=== PATIENT | male | born 1960 | race African-American/Black ===

== ENCOUNTER 2024-09-27 06:29 | Inpatient (IN) | payer OTHER, MEDICAID ==
[~2024-09-27] VITALS: Ht 182.9 cm; Wt 112.0 kg
[2024-09-27] MEDS: ACETAMINOPHEN 325 MG TAB PO ONE (07:01)
--- NOTE | 2024-09-27 07:50 | ED.PDOC ---
General HPI Comments 64-year-old male with HTN, DDD presents with a chief complaint of flank pain and dysuria. Patient states that his pain is localized to his right flank, nonradiating, is sharp in nature, constant in timing, and rates his pain a 8/10. Patient is unsure if he has a kidney stone or if the pain is from his DDD. Patient denies any chest pain or SOB at this time. Denies any hematuria, discharge, or other urinary symptoms. Chief Complaint: Back Pain Time Seen by MD: 07:36 Reviewed notes: Medications, Allergies Allergies: Coded Allergies: NO KNOWN ALLERGIES (Unverified , 09/27/24) Information Source: Patient Mode of Arrival: Ambulatory Severity: Moderate Inability to void: None Timing: Days Duration: Since onset Has not urinated for: Minutes Prehospital treatment: None Onset: Spontaneous Symptoms: Dysuria Location: (R) Flank associated signs and symptoms: Flank Pain, Dysuria Past Medical History PAST MEDICAL HISTORY: HTN Past Medical History (Other): DDD Surgical History: Denies all surgeries Family History Family History: Reviewed,noncontributory to illness Social History Smoker: Non-Smoker Alcohol: Denies ETOH Use Drugs: Denies Drug Use Lives In: Home Constitutional: denies: chills, diaphoresis, fatigue, fever, malaise, sweats, weakness, others EENTM: denies: blurred vision, double vision, ear bleeding, ear discharge, ear drainage, ear pain, ear ringing, eye pain, eye redness, hearing loss, mouth pain, mouth swelling, nasal discharge, nose bleeding, nose congestion, nose pain, photophobia, tearing, throat pain, throat swelling, voice changes, others Respiratory: denies: cough, hemoptysis, orthopnea, SOB at rest, shortness of breath, SOB with excertion, stridor, wheezing, others Cardiovascular: denies: chest pain, dizzy spells, diaphoresis, Dyspnea on exertion, edema, irregular heart beat, left arm pain, lightheadedness, palpitations, PND, syncope, others Gastrointestinal: denies: abdomen distended, abdominal pain, blood streaked bowels, constipated, diarrhea, dysphagia, difficulty swallowing, hematemesis, melena, nausea, poor appetite, poor fluid intake, rectal bleeding, rectal pain, vomiting, others Genitourinary: reports: dysuria, flank pain; denies: burning, frequency, hematuria, incontinence, penile discharge, penile sore, pain, testicle pain, testicle swelling, urgency, others Neurological: denies: dizziness, fainting, headache, left sided numbness, left sided weakness, numbness, paresthesia, pre-existing deficit, right sided numbness, right sided weakness, seizure, speech problems, tingling, tremors, weakness, others Musculoskeletal: denies: back pain, gout, joint pain, joint swelling, muscle pain, muscle stiffness, neck pain, others Integumetry: denies: bruises, change in color, change in hair/nails, dryness, laceration, lesions, lumps, rash, wounds, others Allergic/Immunocompromised: denies: Difficulty Healing, Frequent Infections, Hives, Itching, others Hematologic/Lymphatic: denies: anemia, blood clots, easy bleeding, easy bruising, swollen glands, others Endocrine: denies: excessive hunger, excessive sweating, excessive thirst, excessive urination, flushing, intolerance to cold, intolerance to heat, unexplained weight gain, unexplained weight loss, others Psychiatric: denies: anxiety, bipolar disorder, depression, hopeless, panic disorder, schizophrenia, sleepless, suicidal, others All Other Systems: Reviewed and Negative Physical Exam General Appearance: Moderate Distress, Normal HEENT: Normal ENT Inspection, Pharynx Normal, TMs Normal Neck: Full Range of Motion, Non-Tender, Normal, Normal Inspection Respiratory: Chest Non-Tender, No Accessory Muscle Use, No Respiratory Distress, Other (Coarse breath sounds) Cardiovascular: No Edema, No JVD, No Murmur, No Gallop, Normal Peripheral Pulse s, Tachycardia Breast Exam: Deferred Gastrointestinal: No Organomegaly, Non Tender, No Pulsatile Mass, Normal Bowel Sounds, Soft Genitalia: Deferred Pelvic: Deferred Rectal: Deferred Extremities: No calf tenderness, Normal capillary refill, Normal inspection, Normal range of motion, Non-tender, No pedal edema Musculoskeletal : Apperance: Normal Neurologic: Alert, tennis instructor II-XII nml as Tested, No Motor Deficits, Normal Affect, Normal Mood, No Sensory Deficits Cerebellar Function: Normal Reflexes: Normal Skin: Dry, Normal Color, Warm Peripheral Pulses: 3+ Radial (R), 3+ Radial (L) Lymphatic: No Adenopathy Was a procedure done? Was a procedure done?: No Differential Diagnosis Kidney stone (Female): Musculoskeletal pain, Urinary obstruction, Urolithiasis X-Ray, Labs, Meds, VS Vital Signs Date Time Temp Pulse Resp B/P (MAP) Pulse Ox O2 Delivery O2 Flow Rate FiO2 09/27/24 08:39 98.9 09/27/24 08:10 122 18 98 Room Air 09/27/24 08:10 98.9 122 18 132/83 (99) 98 98.9 09/27/24 07:01 101.7 09/27/24 06:59 128 09/27/24 06:46 101.7 146 20 170/84 (112) 97 Lab Test 09/27/24 08:22 09/27/24 08:05 Range/Units White Blood Count Pending Red Blood Count Pending Hemoglobin Pending Hematocrit Pending Mean Corpuscular Volume Pending Mean Corpuscular Hemoglobin Pending Mean Corpuscular Hemoglobin Concent Pending Red Cell Distribution Width Pending Platelet Count Pending Mean Platelet Volume Pending Neutrophils (%) (Auto) Pending Lymphocytes (%) (Auto) Pending Monocytes (%) (Auto) Pending Basophils (%) (Auto) Pending Neutrophils # (Auto) Pending Lymphocytes # (Auto) Pending Monocytes # (Auto) Pending Sodium Level Pending Potassium Level Pending Chloride Level Pending Carbon Dioxide Level Pending Anion Gap Pending Blood Urea Nitrogen Pending Creatinine Pending Glomerular Filtration Rate Calc Pending BUN/Creatinine Ratio Pending Serum Glucose Pending Lactic Acid Level Pending Calcium Level Pending Troponin I High Sensitivity Pending Influenza Type A Antigen Pending Influenza Type B Antigen Pending SARS-CoV-2 Antigen (Rapid) Pending Current Medications Medications (Trade) Dose Ordered Sig/Angela Route Start Time Stop Time Status Last Admin Acetaminophen (Tylenol Tablet) 650 mg ONCE ONCE PO 09/27/24 07:00 09/27/24 07:01 DC 09/27/24 07:01 Ketorolac Tromethamine (Toradol Injection) 30 mg ONCE ONCE IV 09/27/24 08:00 09/27/24 08:01 DC 09/27/24 08:38 Ceftriaxone Sodium 50 ml @ 100 mls/hr ONCE ONCE IV 09/27/24 08:00 09/27/24 08:29 DC 09/27/24 08:38 Sodium Chloride 1,000 ml @ 1,000 mls/hr Q1H ONCE IV 09/27/24 08:00 09/27/24 08:59 09/27/24 08:30 Patient alert. Has fever. Was given acetaminophen. Saturation pristine on room air. Tachycardia. Blood pressure elevated. Was given clonidine. Establish intravenous access. Was given fluids. Possible pneumonia. He does have a history of degenerative disc disease. Complaining of urinary symptoms. Possible sepsis from urine. Was given Rocephin. Blood cultures. Lactic acid level. Explained to the patient. Continue to monitor. Time of 1ST Reevaluation: 08:06 Reevaluation 1ST: Unchanged Patient Education/Counseling: Diagnosis, Treatment, Prognosis Family Education/Counseling: Diagnosis, Treatment, Prognosis Departure 1 Departure Time of Disposition: 07:57 Impression: Primary Impression: Sepsis, unspecified organism Qualified Codes: A41.9 - Sepsis, unspecified organism Additional Impressions: Pneumonia Qualified Codes: J18.9 - Pneumonia, unspecified organism Hypertensive urgency Disposition: ADMITTED INPATIENT Admit to: Med Surg Condition: Guarded Critical Care Note Critical Care Time?: Yes (45 min-critical care time only) Critical care comment: Tachycardia Stability Stability form required: No Heart Score Heart Score: Heart Score Response (Comments) Value History Slightly Suspicious 0 EKG Normal 0 Age >65 2 Risk Factors >3 or Hx ASHD 2 Troponin Normal limit 0 Total 4 I personally scribed for SUJATA AN MD ([email or web address]) on 09/27/24 at 07:50. Electronically submitted by Bhaskar Michaels ([email or web address]). SUJATA AN MD Sep 27, 2024 07:50
[2024-09-27] MEDS: SODIUM CHLORIDE 0.9% 1,000 ML IV ONE ×2 (08:30→09:25)
[2024-09-27] MEDS: cefTRIAXone 1GM/50ML D5W 50 ML IV ONE (08:38)
[2024-09-27] MEDS: KETOROLAC TROMETH 30 MG/ML 1ML VIAL IV ONE (08:38)
--- NOTE | 2024-09-27 08:39 | DVH ---
CHEST RADIOGRAPH Indication: sob Technique: Single frontal view of the chest was obtained COMPARISON: None FINDINGS: Lines and Tubes: None Lungs: Clear Pleura: No effusion. No pneumothorax. Cardiomediastinal contours: Unremarkable Bones: Unremarkable IMPRESSION: No acute disease.
[2024-09-27 08:47] LABS: Basophils # (auto) 0 10 ^3/uL (0-0.2); Basophils % (auto) 0.3 % (0.0-2.0); Eosinophils # (auto) 0 10 ^3/uL (0-0.8); Hematocrit 45.7 % (41.0-53.0); Hemoglobin 15.6 g/dL (13.5-17.5); Lymphocytes # (auto) 1.1 10 ^3/uL (0.4-5.4); Lymphocytes % (auto) 10.2 % (10.0-50.0); Mean Corpuscular Hemoglobin 30.4 pg (28.0-32.0); Mean Corpuscular Hgb Conc. 34.1 g/dL (32.0-36.0); Mean Corpuscular Volume 89.3 fL (80.0-100.0); Monocytes # (auto) 1.1 10 ^3/uL (0-1.3); Monocytes % (auto) 9.5 % (0.0-12.0); Nucleated Red Blood Cells % 0.2 %; Platelet Count (auto) 169 10^3/uL (140-450); Red Blood Cells 5.12 10^6/uL (4.5-5.90); Red Cell Distribution Width 13.5 % (11.8-14.3); White Blood Cell 11.2 10^3/uL (4.4-10.8)
[2024-09-27 08:58] LABS: Potassium 3.5 mmol/L (3.5-5.1)
[2024-09-27 09:00] LABS: Anion Gap 13 (5-15); Calcium 9.3 mg/dL (8.7-10.4); Carbon Dioxide 19 mmol/L (20-31); Chloride 98 mmol/L (98-107); Sodium 130 mmol/L (136-145)
[2024-09-27 09:05] LABS: Rapid Influenza A Negative (Negative); Rapid Influenza B Negative (Negative)
[2024-09-27 09:05] LABS: BUN/Creatinine Ratio 13.4 (10.0-20.0); Blood Urea Nitrogen 18 mg/dL (9-23)
[2024-09-27 09:06] LABS: COVID19 ANTIGEN SOFIA FIA NEGATIVE (NEGATIVE)
[2024-09-27 09:08] LABS: Glucose 137 mg/dL (74-106)
[2024-09-27] MEDS: AZITHROMYCIN 500MG/ 250ML 250 ML IV ONE (09:25)
[2024-09-27 09:27] LABS: Urine Bacteria MANY /hpf (None Seen); Urine Blood 2+ /uL (Negative); Urine Clarity Ex.Turbid (Clear); Urine Color Light-Orange (Yellow); Urine Mucus FEW (None Seen); Urine Protein, UAD 1+ (Negative); Urine Specific Gravity 1.017 (1.001-1.035); Urine Squamous Epithelial Cell None Seen /hpf (<5); Urine Urobilinogen 2 mg/dL (Negative); Urine WBC 1894 /HPF (0-3); Urine WBC Clumps PRESENT /hpf (None Seen); Urine pH 5.5 (5.0-9.0)
[2024-09-27] MEDS ORDERED: ACETAMINOPHEN 325 MG TAB PO PRN ×2 (09:45)
[2024-09-27] MEDS ORDERED: ONDANSETRON HCL 4 MG/2 ML VIAL IV PRN (09:45)
[2024-09-27] MEDS ORDERED: DEXTROSE (50%) 50ML SYRG IV PRN (09:45)
[2024-09-27] MEDS ORDERED: CHOL20002 (09:48)
[2024-09-27] MEDS ORDERED: MELO15TA29 (09:48)
[2024-09-27] MEDS ORDERED: NORT10CA PO (09:48)
[2024-09-27] MEDS ORDERED: LOSA-535 PO (09:48)
[2024-09-27] MEDS ORDERED: GABA-1250 PO (09:48)
--- NOTE | 2024-09-27 09:59 | DVHHP2 ---
History of Present Illness Reason for Visit: Flank pain History of Present Illness Dejuan Chery is a 64-year-old male with past medical history of hypertension and degenerative disc disease who presents to the ED with right-sided flank pain, dysuria, and back pain for 2-3 days. Patient reports that he has not burning sensation 8/10 but no bleeding and no discharge. Patient reports that he smokes half a pack of cigarettes per day, does not drink, and does not use illicit drugs. Patient denies any chest pain, shortness of breath, nausea, vomiting, diarrhea, chills, lightheadedness, weakness, and dizziness. Cardiovascular: HTN Past Medical History DDD Past Surgical History: None Family History: None Smoke: <1 pack per day ALCOHOL: none Drugs: None Lives: with Family Domestic Violence: Neg Review of Systems Genitourinary: Dysuria Musculoskeletal: other (Flank pain right-sided), back pain Allergies: Coded Allergies: NO KNOWN ALLERGIES (Unverified , 09/27/24) Exam Vital Signs Vital Signs Date Time Temp Pulse Resp B/P (MAP) Pulse Ox O2 Delivery O2 Flow Rate FiO2 09/27/24 08:39 98.9 09/27/24 08:10 122 18 98 Room Air 09/27/24 08:10 132/83 (99) General Appearance: Alert, Oriented X3, Cooperative, No acute distress HEENT: Atraumatic, PERRLA, EOMI, Mucous membr. moist/pink Respiratory: Normal air movement Cardiovascular: Normal S1, Normal S2, No murmurs Abdominal: Soft Extremities: No clubbing, No cyanosis, No edema, Normal pulses, No tenderness/swelling Skin: No rashes, No breakdown, No significant lesion Neuro: Normal gait, Normal speech, Strength at 5/5 X4 ext, Normal tone, Sen sation intact Psych/Mental Status: Mental status NL, Mood NL Labs/Xrays Labs Test 09/27/24 08:22 09/27/24 08:05 09/27/24 07:02 Range/Units White Blood Count 11.2 H 4.4-10.8 10^3/uL Red Blood Count 5.12 4.5-5.90 10^6/uL Hemoglobin 15.6 13.5-17.5 g/dL Hematocrit 45.7 41.0-53.0 % Mean Corpuscular Volume 89.3 80.0-100.0 fL Mean Corpuscular Hemoglobin 30.4 28.0-32.0 pg Mean Corpuscular Hemoglobin Concent 34.1 32.0-36.0 g/dL Red Cell Distribution Width 13.5 11.8-14.3 % Platelet Count 169 140-450 10^3/uL Mean Platelet Volume 9.6 6.9-10.8 fL Neutrophils (%) (Auto) 80.0 37.0-80.0 % Lymphocytes (%) (Auto) 10.2 10.0-50.0 % Monocytes (%) (Auto) 9.5 0.0-12.0 % Eosinophils (%) (Auto) 0.0 0.0-7.0 % Basophils (%) (Auto) 0.3 0.0-2.0 % Neutrophils # (Auto) 9.0 H 1.6-8.6 10 ^3/uL Lymphocytes # (Auto) 1.1 0.4-5.4 10 ^3/uL Monocytes # (Auto) 1.1 0-1.3 10 ^3/uL Eosinophils # (Auto) 0 0-0.8 10 ^3/uL Basophils # (Auto) 0 0-0.2 10 ^3/uL Nucleated Red Blood Cells 0.2 % Sodium Level 130 L 136-145 mmol/L Potassium Level 3.5 3.5-5.1 mmol/L Chloride Level 98 98-107 mmol/L Carbon Dioxide Level 19 L 20-31 mmol/L Anion Gap 13 5-15 Blood Urea Nitrogen 18 9-23 mg/dL Creatinine 1.34 H 0.700-1.30 mg/dL Glomerular Filtration Rate Calc 58 >90 mL/min BUN/Creatinine Ratio 13.4 10.0-20.0 Serum Glucose 137 H 74-106 mg/dL Lactic Acid Level 1.7 0.4-2.0 mmol/L Calcium Level 9.3 8.7-10.4 mg/dL Troponin I High Sensitivity 15 </=54 ng/L Influenza Type A Antigen Negative Negative Influenza Type B Antigen Negative Negative SARS-CoV-2 Antigen (Rapid) Negative NEGATIVE Urine Color Light-orange Yellow Urine Clarity Ex.turbid Clear Urine pH 5.5 5.0-9.0 Urine Specific [place] 1.017 1.001-1.035 Urine Protein 1+ H Negative Urine Ketones Negative Negative Urine Blood 2+ H Negative /uL Urine Nitrite Negative Negative Urine Bilirubin Negative Negative Urine Urobilinogen 2 H Negative mg/dL Urine Leukocyte Esterase 3+ Negative /uL Urine RBC 31 0 - 3 /hpf Urine WBC Clumps Present None Seen /hpf Urine Microscopic WBC 1894 H 0-3 /HPF Urine Squamous Epithelial Cells None seen <5 /hpf Urine Bacteria Many H None Seen /hpf Urine Mucus Few None Seen Urine Glucose Normal Normal mg/dL CHEST RADIOGRAPH Indication: sob Technique: Single frontal view of the chest was obtained COMPARISON: None FINDINGS: Lines and Tubes: None Lungs: Clear Pleura: No effusion. No pneumothorax. Cardiomediastinal contours: Unremarkable Bones: Unremarkable IMPRESSION: No acute disease. Assessment/Plan Assessment/Plan Assessment Intractable flank pain right-sided Dysuria likely due to acute cystitis Leukocytosis likely due to acute cystitis KRISS Intractable back pain Hyperglycemia History of hypertension History of DDD Plan Admit to med surge Antipyretics IV fluids IV antibiotics-ceftriaxone + azithromycin Chest x-ray noted CT abdomen and pelvis Hemoglobin A1c ISS and Accu-Cheks Home medications reconciled UA done Antiemetics Pain management Plan discussed with: Patient My Orders Orders - FEDERICA MARADIAGA DIRECTOR OF SECURITIES AND [employer] Procedure Category Date Status Time Ct Ab Pel Wo Con-No CT 09/27/24 Logged Oral Or Iv 09:40 Admit ADMIT 09/27/24 Transmitted 09:41 Allergies BRITTNEY 09/27/24 Transmitted 09:41 Code Status CODE 09/27/24 Transmitted 09:41 Hydrocodone-Acet PHA 09/27/24 Transmitted 5/325mg Tab ([place] 09:45 Ondansetron Hcl PHA 09/27/24 Transmitted (Zofran) 09:45 Complete Blood Count LAB 09/28/24 Verified 04:00 Comprehensive LAB 09/28/24 Verified Metabolic Panel 04:00 Cardiac DIET 09/27/24 Transmitted Diet-2gna,Lofat,Lochol Lunch Acetaminophen Tablet PHA 09/27/24 Transmitted (Tylenol Tablet) 09:45 Glucose Blood PHA 09/27/24 Transmitted (Accu-Chek Comfort 11:30 Mild Sliding Scale PHA 09/27/24 Transmitted 11:30 Dextrose 50% Syringe PHA 09/27/24 Transmitted 09:45 Hemoglobin A1c LAB 09/27/24 Transmitted 09:41 Azithromycin 500mg/ PHA 09/27/24 Transmitted 250ml (Zithromax 50 10:00 Ceftriaxone Ivpb PHA 09/28/24 Transmitted Rocephin 09:00 NS PHA 09/27/24 Transmitted 09:45 Acetaminophen Tablet PHA 09/27/24 Transmitted (Tylenol Tablet) 09:45 Date of Service: Sep 27, 2024 Billing Provider: FEDERICA MARADIAGA Common Visit Codes: [id number] INP/OBS CARE (HIGH) FEDERICA MARADIAGA Sep 27, 2024 09:59
[2024-09-27] MEDS ORDERED: AZITHROMYCIN 500MG/ 250ML 250 ML IV SCH (10:00)
--- NOTE | 2024-09-27 10:11 | DVH ---
CT ABDOMEN AND PELVIS WITHOUT CONTRAST CLINICAL HISTORY: pain TECHNIQUE: Multiple contiguous axial images of the abdomen and pelvis without intravenous contrast. The images were reformatted degenerate coronal and sagittal reconstructions. All CT scans at this medical facility are performed using dose modulation techniques as appropriate t o a performed exam including the following:Automated exposure control was utilized; adjustment of the MA and/or KV according to patient size; and use of iterative reconstruction technique. Radiation Dose Information: CT Dose: CTDI volume is 18 mGy. Dose-length product is 1046 mGy*cm Comparison: None FINDINGS: Evaluation of the abdomen and pelvis is limited without intravenous contrast. There is a 9 mm calculus in the distal right ureter, just proximal to the UVJ. There is right hydrour eteronephrosis. There is no evidence of a right renal calculus. There is a 10 mm calculus in the lowe r pole of the left kidney. There is no left renal hydronephrosis. There is no left ureteral calculus or hydroureter. The liver, gallbladder, pancreas, adrenal glands, and spleen appear within normal limits. There is no gross evidence of abdominal lymphadenopathy. There is no free fluid or free air. The stomach grossly appears unremarkable. The small and large bowel loops demonstrate normal caliber . There are diverticula in the distal colon without evidence of acute diverticulitis. The abdominal aorta and IVC appear within normal limits. There is a 8 mm calculus along the posterior bladder wall. Pelvic organ appears within normal limits. There is no gross evidence of a pelvic mass. There is no free fluid collection. Lung bases are clear. There is no acute osseous abnormality. There are advanced degenerative changes in both hip joints. IMPRESSION: 1. 9 mm obstructing calculus in the distal right ureter, just proximal to the UVJ. There is right hyd roureteronephrosis. 2. 10 mm nonobstructive calculus in the lower pole of the left kidney. 3. 8 mm calculus along the posterior bladder wall. 4. Distal colon diverticulosis. HS:Y
[2024-09-27 10:30] VITALS: PULSE 94; RESP 18; O2SAT 98
[2024-09-27 11:01] VITALS: PULSE 104; RESP 18; O2SAT 99
[2024-09-27] MEDS: TAMSULOSIN HYDROCHLORIDE 0.4 MG CAP PO ONE (11:05)
[2024-09-27] MEDS: InsuLIN REG 1unit/0.01ml Soln (100units/ml) SC SCH (11:30)
[2024-09-27 12:13] VITALS: BP 134/87; PULSE 96; RESP 18; TEMP 98.2; O2SAT 98
[2024-09-27] MEDS: ACCU-CHEK COMFORT CURVE STRIP VI SCH (13:05)
[2024-09-27] MEDS: SODIUM CHLORIDE 0.9% 1,000 ML IV SCH (13:06)
[2024-09-27] MEDS: AZITHROMYCIN 500MG/ 250ML 250 ML IV SCH (13:14)
[2024-09-27 16:33] VITALS: BP 136/83; PULSE 100; RESP 18; TEMP 97.8; O2SAT 98
[2024-09-27] MEDS: TAMSULOSIN HYDROCHLORIDE 0.4 MG CAP PO SCH (17:47)
[2024-09-27 18:44] VITALS: PULSE 104; RESP 18; O2SAT 99
[2024-09-27 21:00] VITALS: BP 140/82; PULSE 104; RESP 20; TEMP 98.2; O2SAT 97
[2024-09-28] VITALS (7 sets, daily range): BP systolic 110–145; BP diastolic 76–91; PULSE 88–104; RESP 18–20; TEMP 98–98.4; O2SAT 95–99
[2024-09-28 07:30] LABS: Basophils # (auto) 0 10 ^3/uL (0-0.2); Basophils % (auto) 0.4 % (0.0-2.0); Eosinophils # (auto) 0.1 10 ^3/uL (0-0.8); Eosinophils % (auto) 1.1 % (0.0-7.0); Hematocrit 38.8 % (41.0-53.0); Hemoglobin 13.2 g/dL (13.5-17.5); Lymphocytes # (auto) 0.9 10 ^3/uL (0.4-5.4); Lymphocytes % (auto) 16.1 % (10.0-50.0); Mean Corpuscular Hemoglobin 30.3 pg (28.0-32.0); Mean Corpuscular Hgb Conc. 34.1 g/dL (32.0-36.0); Mean Corpuscular Volume 89.1 fL (80.0-100.0); Monocytes # (auto) 0.9 10 ^3/uL (0-1.3); Monocytes % (auto) 15.3 % (0.0-12.0); Neutrophils # (auto) 3.8 10 ^3/uL (1.6-8.6); Neutrophils % (auto) 67.1 % (37.0-80.0); Nucleated Red Blood Cells % 0.1 %; Platelet Count (auto) 140 10^3/uL (140-450); Red Blood Cells 4.35 10^6/uL (4.5-5.90); Red Cell Distribution Width 13.6 % (11.8-14.3); White Blood Cell 5.7 10^3/uL (4.4-10.8)
[2024-09-28 07:34] LABS: Alanine Aminotransferase 20 U/L (7-40); Albumin 3.6 g/dL (3.2-4.8); Alkaline Phosphatase 82 U/L (46-116); Anion Gap 9 (5-15); Aspartate Aminotransferase 32 U/L (13-40); BUN/Creatinine Ratio 16.3 (10.0-20.0); Blood Urea Nitrogen 15 mg/dL (9-23); Carbon Dioxide 23 mmol/L (20-31); Chloride 106 mmol/L (98-107); Potassium 3.6 mmol/L (3.5-5.1); Sodium 138 mmol/L (136-145); Total Protein 6.1 g/dL (5.7-8.2)
[2024-09-28 07:35] LABS: Bilirubin, Total 0.5 mg/dL (0.2-1.0)
[2024-09-28 07:42] LABS: Calcium 8.5 mg/dL (8.7-10.4); Glucose 114 mg/dL (74-106)
[2024-09-28] MEDS: cefTRIAXone 1GM/50ML D5W 50 ML IV SCH (08:36)
--- NOTE | 2024-09-28 11:39 | DVHPN2 ---
Reviewed: Care Plan, H&P, Labs, Medications, Previous Orders, Radiology Changes from previous H/P or p: No Changes Genitourinary: Dysuria Musculoskeletal: other (Flank pain right-sided), back pain Objective Vitals Vital Signs Date Time Temp Pulse Resp B/P (MAP) Pulse Ox O2 Delivery O2 Flow Rate FiO2 09/28/24 09:00 98.4 95 18 145/85 (105) 95 98.4 09/27/24 18:44 Room Air* 0 21 Intake/Output Intake and Output 09/28/24 07:00 Intake Total 2875 ml Balance 2875 ml Intake Oral 500 ml IV Total 2375 ml # Voids 9 Medications Current Medications Medications Dose Ordered Sig/Angela Route Start Time Stop Time Status Last Admin Dose Admin Acetaminophen/ Hydrocodone Bitart 1 tab Q4HP PRN PO 09/27/24 09:45 Ondansetron HCl 4 mg Q4HP PRN IV 09/27/24 09:45 Acetaminophen 650 mg Q6HP PRN PO 09/27/24 09:45 Diagnostic Test (Pha) 1 strip ACHS 09/27/24 11:30 09/28/24 06:32 1 STRIP Insulin Human Regular ACHS SC 09/27/24 11:30 09/27/24 17:46 3 UNITS Dextrose 50 ml UD PRN IV 09/27/24 09:45 Ceftriaxone Sodium 50 ml @ 100 mls/hr DAILY@09 IV 09/28/24 09:00 09/28/24 08:36 100 MLS/HR Sodium Chloride 1,000 ml @ 100 mls/hr Q10H IV 09/27/24 09:45 09/28/24 06:33 100 MLS/HR Tamsulosin HCl 0.4 mg QPM PO 09/27/24 18:00 09/27/24 17:47 0.4 MG Azithromycin 250 ml @ 125 mls/hr DAILY@1300 IV 09/27/24 13:00 09/27/24 13:14 125 MLS/HR Laboratory Results Laboratory Tests 09/28/24 05:34 Chemistry Test 09/28/24 05:34 Albumin 3.6 g/dL (3.2-4.8) Calcium Level 8.5 mg/dL (8.7-10.4) L Total Protein 6.1 g/dL (5.7-8.2) LFT Test 09/28/24 05:34 Alanine Aminotransferase (ALT) 20 U/L (7-40) Alkaline Phosphatase 82 U/L (46-116) Aspartate Amino Transferase (AST) 32 U/L (13-40) Total Bilirubin 0.5 mg/dL (0.2-1.0) Urinalysis Test 09/27/24 07:02 Urine Color Light-orange (Yellow) Urine Clarity Ex.turbid (Clear) Urine pH 5.5 (5.0-9.0) Urine Specific [place] 1.017 (1.001-1.035) Urine Protein 1+ (Negative) H Urine Ketones Negative (Negative) Urine Blood 2+ /uL (Negative) H Urine Nitrite Negative (Negative) Urine Bilirubin Negative (Negative) Urine Urobilinogen 2 mg/dL (Negative) H Urine Leukocyte Esterase 3+ /uL (Negative) Urine RBC 31 /hpf (0 - 3) Urine WBC Clumps Present /hpf (None Seen) Urine Microscopic WBC 1894 /HPF (0-3) H Urine Squamous Epithelial Cells None seen /hpf (<5) Urine Bacteria Many /hpf (None Seen) H Urine Mucus Few (None Seen) Urine Glucose Normal mg/dL (Normal) Microbiology Microbiology Date/Time Source Procedure Growth Status 09/27/24 08:22 Blood Blood Culture - Preliminary NO GROWTH AFTER 24 HOURS OF INCUBATION. Resulted Labs and/or images reviewed: Labs reviewed by me, Image(s) reviewed by me Assessment/Plan Assessment/Plan Sepsis Secondary to acute urinary tract infection: Blood cultures urine cultures Rocephin 9 mm obstructing right distal ureteral stone with hydronephrosis: Consult for Urology Dr. Pappas, [place] IV fluids, pain medication 10 mm left kidney nonobstructing calculus: Urology consult Intractable back pain Hypotension Acute hyponatremia sodium 130: IV fluids Chronic DJD lumbar spine Chronic current smoker counseling Plan discussed with: Patient Date of Service: Sep 28, 2024 Billing Provider: SERGE SAVAGE MD Common Visit Codes: [id number] INP/OBS CARE(HIGH) SERGE SAVAGE MD Sep 28, 2024 11:39
[2024-09-28] MEDS: SODIUM CHLORIDE 0.9% 1,000 ML IV SCH (12:30)
--- NOTE | 2024-09-28 14:18 | DVHINCON2 ---
Date of service: Sep 28, 2024 Referring Physician Hospitalist Reason for Consultation hydronephrosis History of Present Illness History Source: Patient, RN Notes, MD Notes Exam Limitations: No limitations HPI 64 yo male with hx of HTN, DDD and tobacco use who presented with 2-3 days hx of right flank and back pain with dysuria. denies fever, chills, n/v/d, hematuria. Home Meds Reported Medications Cholecalciferol (VITAMIN D3) 2,000 Unit Tab, 1 DAILY 09/27/24 Meloxicam (Meloxicam) 15 Mg Tab, 1 DAILY 09/27/24 Nortriptyline HCl (Nortriptyline Hydrochlori) 10 Mg Cap, 1 CAP PO DAILY 09/27/24 Gabapentin (Gabapentin) 300 Mg Cap, 1 CAP PO Q8H 09/27/24 Losartan Potassium (Losartan Potassium) 100 Mg Tab, 0.5 TAB PO BID 09/27/24 Past Medical History Patient Family History: Diabetes mellitus G8 MOTHER H&P Exam Vital Signs Vital Signs Date Time Temp Pulse Resp B/P (MAP) Pulse Ox O2 Delivery O2 Flow Rate FiO2 09/28/24 11:01 Room Air* 0 21 09/28/24 09:00 98.4 145/85 (105) 98.4 Labs/Xrays [place] [address] Ph: [phone] DIAGNOSTIC IMAGING Diagnostic Imaging Report : [id number] Signed PATIENT: DEMARCO LORA ACCT: [id number] UNIT: [id number] : 1960 LOC: ER ROOM / BED: / AGE / SEX: 64 / M ADM STATUS: REG ER SERVICE 0940 ORDERING PHYSICIAN: FEDERICA MARADIAGA PROCEDURE(s): ABPL - CT AB PEL WO CON-NO ORAL OR IV REASON: pain ORDER NUMBER(s): [id number], ACCESSION NUMBER(s): [id number] CT ABDOMEN AND PELVIS WITHOUT CONTRAST CLINICAL HISTORY: pain TECHNIQUE: Multiple contiguous axial images of the abdomen and pelvis without intravenous contrast. The images were reformatted degenerate coronal and sagittal reconstructions. All CT scans at this medical facility are performed using dose modulation techniques as appropriate to a performed exam including the following:Automated exposure control was utilized; adjustment of the MA and/or KV according to patient size; and use of iterative reconstruction technique. Radiation Dose Information: CT Dose: CTDI volume is 18 mGy. Dose-length product is 1046 mGy*cm Comparison: None FINDINGS: Evaluation of the abdomen and pelvis is limited without intravenous contrast. There is a 9 mm calculus in the distal right ureter, just proximal to the UVJ. There is right hydroureteronephrosis. There is no evidence of a right renal calculus. There is a 10 mm calculus in the lower pole of the left kidney. There is no left renal hydronephrosis. There is no left ureteral calculus or hydroureter. The liver, gallbladder, pancreas, adrenal glands, and spleen appear within normal limits. There is no gross evidence of abdominal lymphadenopathy. There is no free fluid or free air. The stomach grossly appears unremarkable. The small and large bowel loops demonstrate normal caliber. There are diverticula in the distal colon without evidence of acute diverticulitis. The abdominal aorta and IVC appear within normal limits. There is a 8 mm calculus along the posterior bladder wall. Pelvic organ appears within normal limits. There is no gross evidence of a pelvic mass. There is no free fluid collection. Lung bases are clear. There is no acute osseous abnormality. There are advanced degenerative changes in both hip joints. IMPRESSION: 1. 9 mm obstructing calculus in the distal right ureter, just proximal to the UVJ. There is right hydroureteronephrosis. 2. 10 mm nonobstructive calculus in the lower pole of the left kidney. 3. 8 mm calculus along the posterior bladder wall. 4. Distal colon diverticulosis. HS:Y ATED BY: HECTOR HARGROVE MD DICTATED DATE/TIME: 09/27/24 1009 SIGNED BY: HECTOR HARGROVE MD SIGNED DATE/TIME: 09/27/24 1009 CC: Labs Test 09/28/24 12:21 09/28/24 05:34 09/27/24 08:22 09/27/24 08:05 Range/Units POC Glucose 99 70-106 mg/dl White Blood Count 5.7 # 4.4-10.8 10^3/uL Red Blood Count 4.35 L 4.5-5.90 10^6/uL Hemoglobin 13.2 #L 13.5-17.5 g/dL Hematocrit 38.8 #L 41.0-53.0 % Mean Corpuscular Volume 89.1 80.0-100.0 fL Mean Corpuscular Hemoglobin 30.3 28.0-32.0 pg Mean Corpuscular Hemoglobin Concent 34.1 32.0-36.0 g/dL Red Cell Distribution Width 13.6 11.8-14.3 % Platelet Count 140 140-450 10^3/uL Mean Platelet Volume 9.9 6.9-10.8 fL Neutrophils (%) (Auto) 67.1 37.0-80.0 % Lymphocytes (%) (Auto) 16.1 10.0-50.0 % Monocytes (%) (Auto) 15.3 H 0.0-12.0 % Eosinophils (%) (Auto) 1.1 0.0-7.0 % Basophils (%) (Auto) 0.4 0.0-2.0 % Neutrophils # (Auto) 3.8 1.6-8.6 10 ^3/uL Lymphocytes # (Auto) 0.9 0.4-5.4 10 ^3/uL Monocytes # (Auto) 0.9 0-1.3 10 ^3/uL Eosinophils # (Auto) 0.1 0-0.8 10 ^3/uL Basophils # (Auto) 0 0-0.2 10 ^3/uL Nucleated Red Blood Cells 0.1 % Sodium Level 138 # 136-145 mmol/L Potassium Level 3.6 3.5-5.1 mmol/L Chloride Level 106 98-107 mmol/L Carbon Dioxide Level 23 20-31 mmol/L Anion Gap 9 5-15 Blood Urea Nitrogen 15 9-23 mg/dL Creatinine 0.92 0.700-1.30 mg/dL Glomerular Filtration Rate Calc 92 >90 mL/min BUN/Creatinine Ratio 16.3 10.0-20.0 Serum Glucose 114 H 74-106 mg/dL Calcium Level 8.5 L 8.7-10.4 mg/dL Total Bilirubin 0.5 0.2-1.0 mg/dL Aspartate Amino Transferase (AST) 32 13-40 U/L Alanine Aminotransferase (ALT) 20 7-40 U/L Alkaline Phosphatase 82 46-116 U/L Total Protein 6.1 5.7-8.2 g/dL Albumin 3.6 3.2-4.8 g/dL Hemoglobin A1c 5.7 <5.7 % A1C Lactic Acid Level 1.7 0.4-2.0 mmol/L Troponin I High Sensitivity 15 </=54 ng/L Influenza Type A Antigen Negative Negative Influenza Type B Antigen Negative Negative SARS-CoV-2 Antigen (Rapid) Negative NEGATIVE Test 09/27/24 07:02 Range/Units Urine Color Light-orange Yellow Urine Clarity Ex.turbid Clear Urine pH 5.5 5.0-9.0 Urine Specific [place] 1.017 1.001-1.035 Urine Protein 1+ H Negative Urine Ketones Negative Negative Urine Blood 2+ H Negative /uL Urine Nitrite Negative Negative Urine Bilirubin Negative Negative Urine Urobilinogen 2 H Negative mg/dL Urine Leukocyte Esterase 3+ Negative /uL Urine RBC 31 0 - 3 /hpf Urine WBC Clumps Present None Seen /hpf Urine Microscopic WBC 1894 H 0-3 /HPF Urine Squamous Epithelial Cells None seen <5 /hpf Urine Bacteria Many H None Seen /hpf Urine Mucus Few None Seen Urine Glucose Normal Normal mg/dL Microbiology Date/Time Source Procedure Growth Status 09/27/24 08:22 Blood Blood Culture - Preliminary NO GROWTH AFTER 24 HOURS OF INCUBATION. Resulted Assessment/Plan Problem List: (1) Hydronephrosis with obstructing calculus (2) Calculus of kidney (3) Calculus in bladder (4) Sepsis, unspecified organism Plan hydrate pain meds prn empiric abx consult IR for right PCN placement patient will eventually need cystoscopy with left ureteral stent placement and ESWL, right URSLL with ureteral stent placement, cystolitholapaxy and removal of PCN when bacteremia has been fully treated. Plan discussed with: Patient, Other ANNE MCCRAY FAMILY RESOURCE SPECIALIST Sep 28, 2024 14:18
[2024-09-28 15:13] LABS: Urine Bacteria None Seen /hpf (None Seen)
[2024-09-28 15:31] LABS: Urine Blood 1+ /uL (Negative); Urine Clarity Clear (Clear); Urine Color Yellow (Yellow); Urine Mucus FEW (None Seen); Urine Protein, UAD Negative (Negative); Urine Specific Gravity 1.012 (1.001-1.035); Urine Squamous Epithelial Cell FEW /hpf (<5); Urine Urobilinogen 3 mg/dL (Negative); Urine WBC 25 /HPF (0-3); Urine WBC Clumps PRESENT /hpf (None Seen); Urine pH 5.5 (5.0-9.0)
[2024-09-29] VITALS (7 sets, daily range): BP systolic 118–171; BP diastolic 81–96; PULSE 79–92; RESP 18–20; TEMP 97.6–98.6; O2SAT 96–99
--- NOTE | 2024-09-29 10:07 | DVH ---
US KIDNEY HISTORY: hydronephrosis, check for jetting COMPARISON: None TECHNIQUE: Transverse and longitudinal grayscale and color doppler images were obtained of the kidney s and bladder. FINDINGS: Right kidney: Size: 11.7 cm Cortical thickness: Normal Echogenicity: Normal Stones: None Masses: None Hydronephrosis: None Ureters: Not well visualized. Other: None Left kidney: Size: 12.2 cm Cortical thickness: Normal Echogenicity: Normal Stones: None Masses: None Hydronephrosis: None Ureters: Not well visualized. Other: None Bladder: Normal Other: Bilateral ureteral jets seen. IMPRESSION: Bilateral ureteral jets seen.
--- NOTE | 2024-09-29 11:52 | DVHPN2 ---
Reviewed: Care Plan, H&P, Labs, Medications, Previous Orders, Radiology Changes from previous H/P or p: No Changes Genitourinary: Dysuria Musculoskeletal: other (Flank pain right-sided), back pain Objective Vitals Vital Signs Date Time Temp Pulse Resp B/P (MAP) Pulse Ox O2 Delivery O2 Flow Rate FiO2 09/29/24 09:00 98.2 92 19 163/96 (118) 96 98.2 09/29/24 08:08 Room Air* 0 21 Intake/Output Intake and Output 09/29/24 07:00 Intake Total 2260 ml Balance 2260 ml Intake Oral 910 ml IV Total 1350 ml # Voids 6 # Bowel Movements 1 Medications Current Medications Medications Dose Ordered Sig/Angela Route Start Time Stop Time Status Last Admin Dose Admin Acetaminophen/ Hydrocodone Bitart 1 tab Q4HP PRN PO 09/27/24 09:45 Ondansetron HCl 4 mg Q4HP PRN IV 09/27/24 09:45 Acetaminophen 650 mg Q6HP PRN PO 09/27/24 09:45 Diagnostic Test (Pha) 1 strip ACHS 09/27/24 11:30 09/29/24 11:32 1 STRIP Insulin Human Regular ACHS SC 09/27/24 11:30 09/29/24 11:32 2 UNITS Dextrose 50 ml UD PRN IV 09/27/24 09:45 Ceftriaxone Sodium 50 ml @ 100 mls/hr DAILY@09 IV 09/28/24 09:00 09/29/24 08:33 100 MLS/HR Tamsulosin HCl 0.4 mg QPM PO 09/27/24 18:00 09/28/24 18:00 0.4 MG Azithromycin 250 ml @ 125 mls/hr DAILY@1300 IV 09/27/24 13:00 09/28/24 13:35 125 MLS/HR Sodium Chloride 1,000 ml @ 150 mls/hr Q6H40M IV 09/28/24 12:00 09/29/24 10:34 150 MLS/HR Laboratory Results Laboratory Tests 09/28/24 05:34 Urinalysis Test 09/28/24 13:14 Urine Color Yellow (Yellow) Urine Clarity Clear (Clear) Urine pH 5.5 (5.0-9.0) Urine Specific [place] 1.012 (1.001-1.035) Urine Protein Negative (Negative) Urine Ketones Negative (Negative) Urine Blood 1+ /uL (Negative) H Urine Nitrite Negative (Negative) Urine Bilirubin Negative (Negative) Urine Urobilinogen 3 mg/dL (Negative) H Urine Leukocyte Esterase 2+ /uL (Negative) Urine RBC 5 /hpf (0 - 3) Urine WBC Clumps Present /hpf (None Seen) Urine Microscopic WBC 25 /HPF (0-3) H Urine Squamous Epithelial Cells Few /hpf (<5) Urine Bacteria None seen /hpf (None Seen) Urine Mucus Few (None Seen) Urine Glucose Normal mg/dL (Normal) Microbiology Microbiology Date/Time Source Procedure Growth Status 09/27/24 08:22 Blood Blood Culture - Preliminary NO GROWTH AFTER 48 HOURS OF INCUBATION. Resulted 09/27/24 07:02 Voided Urine Urine Culture - Preliminary Resulted Labs and/or images reviewed: Labs reviewed by me, Image(s) reviewed by me Assessment/Plan Assessment/Plan Sepsis Secondary to acute urinary tract infection: Bacteremia with Klebsiella pneumoniae: Continue Rocephin IV Acute urinary tract infection urine cultures pending 9 mm obstructing right distal ureteral stone with hydronephrosis: Consult for Urology Dr. Pappas appreciated., Flomax IV fluids, pain medication, consult placed for radiologist for right nephrostomy tube placement Per Urology: "patient will eventually need cystoscopy with left ureteral stent placement and ESWL, right URSLL with ureteral stent placement, cystolitholapaxy and removal of PCN when bacteremia has been fully treated" 10 mm left kidney nonobstructing calculus: Urology consult Intractable back pain Hypotension Acute hyponatremia sodium 130: IV fluids Chronic DJD lumbar spine Chronic current smoker counseling PCP Dr Kanu Mcclain Andree: [phone] Plan discussed with: Patient My Orders Orders - SERGE SAVAGE MD Procedure Category Date Status Time Urine Bacterial JEANCARLOS 09/28/24 In Process Culture 11:39 Sodium Chloride 0.9% PHA 09/28/24 In Process 12:00 * Urology Consult CONS 09/28/24 Transmitted 11:57 Date of Service: Sep 29, 2024 Billing Provider: SERGE SAVAGE MD Common Visit Codes: [id number] INP/OBS CARE(HIGH) SERGE SAVAGE MD Sep 29, 2024 11:52
[2024-09-29] MEDS: LOSARTAN POTASSIUM 50 MG TAB PO ONE (12:35)
--- NOTE | 2024-09-29 14:10 | DVH ---
Exam: [id number] KUB ABDOMEN SINGLE VIEW Indication: stone Comparison: CT scan of the abdomen and pelvis dated 09/27/2024. Technique: Supine AP view of the abdomen was performed. Findings: No abnormal bowel dilatation. Gas is present throughout the colon. The right distal ureteral calculus seen on the recent CT scan is not well visualized here, as the single submitted image is centered to o high. Calculus is re-identified in the left renal inferior pole. There is severe osteoarthritis of the bilateral hips. There is moderate to severe lumbar degenerative disc disease. Impression: 1. No evidence of bowel obstruction. 2. Left nephrolithiasis. 3. Right distal ureteral calculus May or may not remain in place. The current single image is not isaiah quate for evaluation of this calculus. 4. Severe bilateral hip osteoarthritis and moderate to severe lumbar degenerative disc disease.
--- NOTE | 2024-09-29 16:39 | MEDREC ---
[facility] Intervention Section I [facility] Intervention: Review courses of therapy (PLEASE CONSIDER D/C AZITHROMYCIN IN ABSENCE OF COMMUNITY ACQUIRED PNEUMONIA) EVELINA RAMOS PHARMACIST Sep 29, 2024 16:39
--- NOTE | 2024-09-29 16:57 | DVHPN2 ---
Progress Note - Dictate Date Seen: Sep 29, 2024 Medical Necessity Reason Pt with a Central, PICC or Fol: No Subjective feeling well vital signs Vital Sign Date Time Temp Pulse Resp B/P (MAP) Pulse Ox O2 Delivery O2 Flow Rate FiO2 09/29/24 13:00 97.6 91 19 171/92 (118) 99 97.6 09/29/24 08:08 Room Air* 0 21 Total Intake and Output 09/28/24 09/28/24 09/29/24 15:00 23:00 07:00 Intake Total 600 ml 1210 ml 450 ml Balance 600 ml 1210 ml 450 ml medications Current Medications Medications Dose Ordered Sig/Angela Route Start Time Stop Time Status Last Admin Dose Admin Acetaminophen/ Hydrocodone Bitart 1 tab Q4HP PRN PO 09/27/24 09:45 Ondansetron HCl 4 mg Q4HP PRN IV 09/27/24 09:45 Acetaminophen 650 mg Q6HP PRN PO 09/27/24 09:45 Diagnostic Test (Pha) 1 strip ACHS 09/27/24 11:30 09/29/24 11:32 1 STRIP Insulin Human Regular ACHS SC 09/27/24 11:30 09/29/24 11:32 2 UNITS Dextrose 50 ml UD PRN IV 09/27/24 09:45 Ceftriaxone Sodium 50 ml @ 100 mls/hr DAILY@09 IV 09/28/24 09:00 09/29/24 08:33 100 MLS/HR Tamsulosin HCl 0.4 mg QPM PO 09/27/24 18:00 09/28/24 18:00 0.4 MG Azithromycin 250 ml @ 125 mls/hr DAILY@1300 IV 09/27/24 13:00 09/29/24 12:49 125 MLS/HR Sodium Chloride 1,000 ml @ 150 mls/hr Q6H40M IV 09/28/24 12:00 09/29/24 10:34 150 MLS/HR Losartan Potassium 100 mg DAILY PO 09/30/24 10:00 laboratory and microbiology Laboratory Tests 09/28/24 05:34 Test 09/28/24 05:34 Range/Units Serum Glucose 114 H 74-106 mg/dL Assessment/Plan cleared from urology standpoint for outpt follow up renal US confirmed bilateral jets are visualized normal renal function PCN not indicated at this time. Radiology consult cancelled. Problems(with codes): (1) Pneumonia (2) Hypertensive urgency (3) Sepsis, unspecified organism (4) Calculus of kidney (5) Calculus in bladder (6) Hydronephrosis with obstructing calculus Plan discussed with: Patient Total Time (mins): 21 ANNE MCCRAY NP Sep 29, 2024 16:57
[2024-09-30] VITALS (8 sets, daily range): BP systolic 110–166; BP diastolic 80–97; PULSE 83–96; RESP 16–22; TEMP 97.8–98.3; O2SAT 95–99
[2024-09-30] MEDS: LOSARTAN POTASSIUM 50 MG TAB PO SCH (09:14)
--- NOTE | 2024-09-30 13:06 | DVHPN2 ---
Reviewed: Care Plan, H&P, Labs, Medications, Previous Orders, Radiology Changes from previous H/P or p: No Changes Genitourinary: Dysuria Musculoskeletal: other (Flank pain right-sided), back pain Objective Vitals Vital Signs Date Time Temp Pulse Resp B/P (MAP) Pulse Ox O2 Delivery O2 Flow Rate FiO2 09/30/24 09:14 166/97 09/30/24 09:00 98.0 94 18 95 98.0 09/30/24 08:15 Room Air* 0 21 Intake/Output Intake and Output 09/30/24 07:00 Intake Total 5475 ml Output Total 600 ml Balance 4875 ml Intake Oral 1475 ml IV Total 4000 ml Output Urine Total 600 ml # Voids 4 # Bowel Movements 3 Medications Current Medications Medications Dose Ordered Sig/Angela Route Start Time Stop Time Status Last Admin Dose Admin Acetaminophen/ Hydrocodone Bitart 1 tab Q4HP PRN PO 09/27/24 09:45 Ondansetron HCl 4 mg Q4HP PRN IV 09/27/24 09:45 Acetaminophen 650 mg Q6HP PRN PO 09/27/24 09:45 Diagnostic Test (Pha) 1 strip ACHS 09/27/24 11:30 09/30/24 11:53 1 STRIP Insulin Human Regular ACHS SC 09/27/24 11:30 09/29/24 11:32 2 UNITS Dextrose 50 ml UD PRN IV 09/27/24 09:45 Ceftriaxone Sodium 50 ml @ 100 mls/hr DAILY@09 IV 09/28/24 09:00 09/30/24 09:13 100 MLS/HR Tamsulosin HCl 0.4 mg QPM PO 09/27/24 18:00 09/29/24 18:04 0.4 MG Azithromycin 250 ml @ 125 mls/hr DAILY@1300 IV 09/27/24 13:00 09/29/24 12:49 125 MLS/HR Sodium Chloride 1,000 ml @ 150 mls/hr Q6H40M IV 09/28/24 12:00 09/30/24 05:26 150 MLS/HR Losartan Potassium 100 mg DAILY PO 09/30/24 10:00 09/30/24 09:14 100 MG Laboratory Results Laboratory Tests 09/28/24 05:34 Coagulation Test 09/30/24 09:53 Prothrombin Time Pending Prothrombin Time INR Pending Activated Partial Thromboplast Time Pending Urinalysis Test 09/28/24 13:14 Urine Color Yellow (Yellow) Urine Clarity Clear (Clear) Urine pH 5.5 (5.0-9.0) Urine Specific [place] 1.012 (1.001-1.035) Urine Protein Negative (Negative) Urine Ketones Negative (Negative) Urine Blood 1+ /uL (Negative) H Urine Nitrite Negative (Negative) Urine Bilirubin Negative (Negative) Urine Urobilinogen 3 mg/dL (Negative) H Urine Leukocyte Esterase 2+ /uL (Negative) Urine RBC 5 /hpf (0 - 3) Urine WBC Clumps Present /hpf (None Seen) Urine Microscopic WBC 25 /HPF (0-3) H Urine Squamous Epithelial Cells Few /hpf (<5) Urine Bacteria None seen /hpf (None Seen) Urine Mucus Few (None Seen) Urine Glucose Normal mg/dL (Normal) Microbiology Microbiology Date/Time Source Procedure Growth Status 09/27/24 08:22 Blood Blood Culture - Preliminary NO GROWTH AFTER 72 HOURS OF INCUBATION. Resulted 09/27/24 07:02 Voided Urine Urine Culture - Preliminary Resulted Labs and/or images reviewed: Labs reviewed by me, Image(s) reviewed by me Assessment/Plan Assessment/Plan Sepsis Secondary to acute urinary tract infection: Bacteremia with Klebsiella pneumoniae: Continue Rocephin IV Acute urinary tract infection urine cultures pending 9 mm obstructing right distal ureteral stone with hydronephrosis: Consult for Urology Dr. Mian cavanaugh., Flomax IV fluids, pain medication, consult placed for radiologist for right nephrostomy tube placement Per Urology: "patient will eventually need cystoscopy with left ureteral stent placement and ESWL, right URSLL with ureteral stent placement, cystolitholapaxy and removal of PCN when bacteremia has been fully treated" 10 mm left kidney nonobstructing calculus: Urology consult Intractable back pain Hypotension Acute hyponatremia sodium 130: IV fluids Chronic DJD lumbar spine Chronic current smoker counseling PCP Dr Kanu Mcclain [place]: [phone] Repeat blood cultures 09-30-24 result pending Plan discussed with: Patient Date of Service: Sep 30, 2024 Billing Provider: SERGE SAVAGE MD Common Visit Codes: [id number] INP/OBS CARE(HIGH) SERGE SAVAGE MD Sep 30, 2024 13:06
[2024-09-30 14:54] LABS: INR 0.96 (0.9-1.15); Partial Thromboplastin Time 27.1 SEC (24.5-34.5); Prothrombin Time 10.2 sec (9.3-11.8)
[2024-10-01] VITALS (9 sets, daily range): BP systolic 133–173; BP diastolic 78–103; PULSE 83–89; RESP 17–20; TEMP 97.7–98.7; O2SAT 97–99
--- NOTE | 2024-10-01 13:29 | DVHPN2 ---
Reviewed: Care Plan, H&P, Labs, Medications, Previous Orders, Radiology Changes from previous H/P or p: No Changes Genitourinary: Dysuria Musculoskeletal: other (Flank pain right-sided), back pain Objective Vitals Vital Signs Date Time Temp Pulse Resp B/P (MAP) Pulse Ox O2 Delivery O2 Flow Rate FiO2 10/01/24 10:07 83 140/94 (109) 10/01/24 09:00 97.7 20 98 97.7 10/01/24 08:00 Room Air* 0 21 Intake/Output Intake and Output 10/01/24 07:00 Intake Total 4709 ml Balance 4709 ml Intake Oral 1834 ml IV Total 2875 ml # Voids 10 Medications Current Medications Medications Dose Ordered Sig/Angela Route Start Time Stop Time Status Last Admin Dose Admin Acetaminophen/ Hydrocodone Bitart 1 tab Q4HP PRN PO 09/27/24 09:45 Ondansetron HCl 4 mg Q4HP PRN IV 09/27/24 09:45 Acetaminophen 650 mg Q6HP PRN PO 09/27/24 09:45 Diagnostic Test (Pha) 1 strip ACHS 09/27/24 11:30 09/30/24 22:20 1 STRIP Insulin Human Regular ACHS SC 09/27/24 11:30 09/30/24 18:11 2 UNITS Dextrose 50 ml UD PRN IV 09/27/24 09:45 Ceftriaxone Sodium 50 ml @ 100 mls/hr DAILY@09 IV 09/28/24 09:00 10/01/24 08:39 100 MLS/HR Tamsulosin HCl 0.4 mg QPM PO 09/27/24 18:00 09/30/24 18:08 0.4 MG Sodium Chloride 1,000 ml @ 150 mls/hr Q6H40M IV 09/28/24 12:00 10/01/24 13:00 150 MLS/HR Losartan Potassium 100 mg DAILY PO 09/30/24 10:00 10/01/24 08:41 100 MG Laboratory Results Laboratory Tests 09/28/24 05:34 Coagulation Test 09/30/24 13:58 Prothrombin Time 10.2 sec (9.3-11.8) Prothrombin Time INR 0.96 (0.9-1.15) Activated Partial Thromboplast Time 27.1 SEC (24.5-34.5) Urinalysis Test 09/28/24 13:14 Urine Color Yellow (Yellow) Urine Clarity Clear (Clear) Urine pH 5.5 (5.0-9.0) Urine Specific [place] 1.012 (1.001-1.035) Urine Protein Negative (Negative) Urine Ketones Negative (Negative) Urine Blood 1+ /uL (Negative) H Urine Nitrite Negative (Negative) Urine Bilirubin Negative (Negative) Urine Urobilinogen 3 mg/dL (Negative) H Urine Leukocyte Esterase 2+ /uL (Negative) Urine RBC 5 /hpf (0 - 3) Urine WBC Clumps Present /hpf (None Seen) Urine Microscopic WBC 25 /HPF (0-3) H Urine Squamous Epithelial Cells Few /hpf (<5) Urine Bacteria None seen /hpf (None Seen) Urine Mucus Few (None Seen) Urine Glucose Normal mg/dL (Normal) Microbiology Microbiology Date/Time Source Procedure Growth Status 09/27/24 08:22 Blood Blood Culture - Preliminary NO GROWTH AFTER 72 HOURS OF INCUBATION. Resulted 09/27/24 07:02 Voided Urine Urine Culture - Final Klebsiella pneumoniae Complete Labs and/or images reviewed: Labs reviewed by me, Image(s) reviewed by me Assessment/Plan Assessment/Plan Sepsis Secondary to acute urinary tract infection: Bacteremia with Klebsiella pneumoniae: Continue Rocephin 1 g IV daily for two weeks Acute urinary tract infection urine cultures growing Klebsiella pneumoniae 9 mm obstructing right distal ureteral stone with hydronephrosis: Consult for Urology Dr. Pappas appreciated., Flomax IV fluids, pain medication, Radiology consult for nephrostomy tube placement was canceled by Urology "patient will eventually need cystoscopy with left ureteral stent placement and ESWL, right URSLL with ureteral stent placement, cystolitholapaxy and removal of PCN when bacteremia has been fully treated" 10 mm left kidney nonobstructing calculus: Urology consult Intractable back pain Hypotension Acute hyponatremia sodium 130: IV fluids Chronic DJD lumbar spine Chronic current smoker counseling PCP Dr Kanu Mcclain Andree: [phone] Repeat blood cultures 09-30-24 result pending Plan discussed with: Patient Date of Service: Oct 01, 2024 Billing Provider: SERGE SAVAGE MD Common Visit Codes: [id number] INP/OBS CARE(HIGH) SERGE SAVAGE MD Oct 01, 2024 13:29
--- NOTE | 2024-10-01 14:24 | ECG ---
[facility] Test Date: 2024-09-27 Test Time: 06:59:43 Pat Name: DEMARCO LORA Department: ER Room: 0290 A Gender: M Freight Sorter: PUJA : 1960 Requested By: EMERGENCY EMERGENCY Order Number: [id number] Reading MD: Jonas Henley Measurements Intervals [place] Rate: 128 P: 58 MI: 151 QRS: -18 QRSD: 114 T: 73 QT: 323 QTc: 472 Interpretive Statements Sinus tachycardia Incomplete right bundle branch block Electronically Signed On 10-05-2024 16:43:21 PST by Jonas Henley Please click the below link to view image of tracing.
[2024-10-02 01:00] VITALS: BP 145/87; PULSE 85; RESP 17; TEMP 97.9; O2SAT 99
[2024-10-02 05:00] VITALS: BP 153/93; PULSE 90; RESP 17; TEMP 98; O2SAT 98
[2024-10-02 08:00] VITALS: PULSE 90; RESP 18; O2SAT 98
[2024-10-02] MEDS: HYDROcodone-ACET 5/325MG TAB PO PRN (08:18)
[2024-10-02 09:00] VITALS: BP 140/93; PULSE 90; RESP 18; TEMP 98; O2SAT 98
[2024-10-02 13:00] VITALS: BP 149/84; PULSE 88; RESP 18; TEMP 97.9; O2SAT 97
--- NOTE | 2024-10-02 14:43 | DVHPN2 ---
Reviewed: Care Plan, H&P, Labs, Medications, Previous Orders, Radiology Changes from previous H/P or p: No Changes Genitourinary: Dysuria Musculoskeletal: other (Flank pain right-sided), back pain Objective Vitals Vital Signs Date Time Temp Pulse Resp B/P (MAP) Pulse Ox O2 Delivery O2 Flow Rate FiO2 10/02/24 13:00 97.9 88 18 149/84 (105) 97 97.9 10/02/24 08:00 Room Air* 0 21 Intake/Output Intake and Output 10/02/24 07:00 Intake Total 4930 ml Balance 4930 ml Intake Oral 1980 ml IV Total 2950 ml # Voids 6 Medications Current Medications Medications Dose Ordered Sig/Angela Route Start Time Stop Time Status Last Admin Dose Admin Acetaminophen/ Hydrocodone Bitart 1 tab Q4HP PRN PO 09/27/24 09:45 10/02/24 08:18 1 TAB Ondansetron HCl 4 mg Q4HP PRN IV 09/27/24 09:45 Acetaminophen 650 mg Q6HP PRN PO 09/27/24 09:45 Dextrose 50 ml UD PRN IV 09/27/24 09:45 Ceftriaxone Sodium 50 ml @ 100 mls/hr DAILY@09 IV 09/28/24 09:00 10/02/24 08:19 100 MLS/HR Tamsulosin HCl 0.4 mg QPM PO 09/27/24 18:00 10/01/24 17:31 0.4 MG Sodium Chloride 1,000 ml @ 150 mls/hr Q6H40M IV 09/28/24 12:00 10/02/24 05:11 150 MLS/HR Losartan Potassium 100 mg DAILY PO 09/30/24 10:00 10/02/24 08:18 100 MG Laboratory Results Laboratory Tests 09/28/24 05:34 Urinalysis Test 09/28/24 13:14 Urine Color Yellow (Yellow) Urine Clarity Clear (Clear) Urine pH 5.5 (5.0-9.0) Urine Specific [place] 1.012 (1.001-1.035) Urine Protein Negative (Negative) Urine Ketones Negative (Negative) Urine Blood 1+ /uL (Negative) H Urine Nitrite Negative (Negative) Urine Bilirubin Negative (Negative) Urine Urobilinogen 3 mg/dL (Negative) H Urine Leukocyte Esterase 2+ /uL (Negative) Urine RBC 5 /hpf (0 - 3) Urine WBC Clumps Present /hpf (None Seen) Urine Microscopic WBC 25 /HPF (0-3) H Urine Squamous Epithelial Cells Few /hpf (<5) Urine Bacteria None seen /hpf (None Seen) Urine Mucus Few (None Seen) Urine Glucose Normal mg/dL (Normal) Microbiology Microbiology Date/Time Source Procedure Growth Status 09/30/24 14:47 Blood Blood Culture - Preliminary NO GROWTH AFTER 24 HOURS OF INCUBATION. Resulted 09/27/24 07:02 Voided Urine Urine Culture - Final Klebsiella pneumoniae Complete Labs and/or images reviewed: Labs reviewed by me, Image(s) reviewed by me Assessment/Plan Assessment/Plan Sepsis Secondary to acute urinary tract infection: Bacteremia with Klebsiella pneumoniae: Continue Rocephin 1 g IV daily for two weeks by home health Acute urinary tract infection urine cultures growing Klebsiella pneumoniae 9 mm obstructing right distal ureteral stone with hydronephrosis: Consult for Urology Dr. Pappas appreciated., Flomax IV fluids, pain medication, Radiology consult for nephrostomy tube placement was canceled by Urology "patient will eventually need cystoscopy with left ureteral stent placement and ESWL, right URSLL with ureteral stent placement, cystolitholapaxy and removal of PCN when bacteremia has been fully treated" 10 mm left kidney nonobstructing calculus: Urology consult Intractable back pain Hypotension Acute hyponatremia sodium 130: IV fluids Chronic DJD lumbar spine Chronic current smoker counseling PCP Dr Kanu Mcclain Andree: [phone] Patient Refused long term facility placement Plan discussed with: Patient Date of Service: Oct 02, 2024 Billing Provider: SERGE SAVAGE MD Common Visit Codes: [id number] INP/OBS CARE(HIGH) SERGE SAVAGE MD Oct 02, 2024 14:42
--- NOTE | 2024-10-02 14:48 | DVHDS2 ---
Discharge Summary Date of Admission Sep 27, 2024 at 09:41 Date of Discharge: Oct 02, 2024 Admitting Diagnosis Generalized weakness Wounds: None Labs/Diagnostic Data: Laboratory Results Test 09/30/24 16:36 09/30/24 13:58 09/28/24 13:14 09/28/24 05:34 POC Glucose 132 mg/dl (70-106) Prothrombin Time 10.2 sec (9.3-11.8) Prothrombin Time INR 0.96 (0.9-1.15) Activated Partial Thromboplast Time 27.1 SEC (24.5-34.5) Urine Color Yellow (Yellow) Urine Clarity Clear (Clear) Urine pH 5.5 (5.0-9.0) Urine Specific [place] 1.012 (1.001-1.035) Urine Protein Negative (Negative) Urine Ketones Negative (Negative) Urine Blood 1+ /uL (Negative) Urine Nitrite Negative (Negative) Urine Bilirubin Negative (Negative) Urine Urobilinogen 3 mg/dL (Negative) Urine Leukocyte Esterase 2+ /uL (Negative) Urine RBC 5 /hpf (0 - 3) Urine WBC Clumps Present /hpf (None Seen) Urine Microscopic WBC 25 /HPF (0-3) Urine Squamous Epithelial Cells Few /hpf (<5) Urine Bacteria None seen /hpf (None Seen) Urine Mucus Few (None Seen) Urine Glucose Normal mg/dL (Normal) White Blood Count 5.7 10^3/uL (4.4-10.8) Red Blood Count 4.35 10^6/uL (4.5-5.90) Hemoglobin 13.2 g/dL (13.5-17.5) Hematocrit 38.8 % (41.0-53.0) Mean Corpuscular Volume 89.1 fL (80.0-100.0) Mean Corpuscular Hemoglobin 30.3 pg (28.0-32.0) Mean Corpuscular Hemoglobin Concent 34.1 g/dL (32.0-36.0) Red Cell Distribution Width 13.6 % (11.8-14.3) Platelet Count 140 10^3/uL (140-450) Mean Platelet Volume 9.9 fL (6.9-10.8) Neutrophils (%) (Auto) 67.1 % (37.0-80.0) Lymphocytes (%) (Auto) 16.1 % (10.0-50.0) Monocytes (%) (Auto) 15.3 % (0.0-12.0) Eosinophils (%) (Auto) 1.1 % (0.0-7.0) Basophils (%) (Auto) 0.4 % (0.0-2.0) Neutrophils # (Auto) 3.8 10 ^3/uL (1.6-8.6) Lymphocytes # (Auto) 0.9 10 ^3/uL (0.4-5.4) Monocytes # (Auto) 0.9 10 ^3/uL (0-1.3) Eosinophils # (Auto) 0.1 10 ^3/uL (0-0.8) Basophils # (Auto) 0 10 ^3/uL (0-0.2) Nucleated Red Blood Cells 0.1 % Sodium Level 138 mmol/L (136-145) Potassium Level 3.6 mmol/L (3.5-5.1) Chloride Level 106 mmol/L (98-107) Carbon Dioxide Level 23 mmol/L (20-31) Anion Gap 9 (5-15) Blood Urea Nitrogen 15 mg/dL (9-23) Creatinine 0.92 mg/dL (0.700-1.30) Glomerular Filtration Rate Calc 92 mL/min (>90) BUN/Creatinine Ratio 16.3 (10.0-20.0) Serum Glucose 114 mg/dL (74-106) Calcium Level 8.5 mg/dL (8.7-10.4) Total Bilirubin 0.5 mg/dL (0.2-1.0) Aspartate Amino Transferase (AST) 32 U/L (13-40) Alanine Aminotransferase (ALT) 20 U/L (7-40) Alkaline Phosphatase 82 U/L (46-116) Total Protein 6.1 g/dL (5.7-8.2) Albumin 3.6 g/dL (3.2-4.8) Test 09/27/24 08:22 09/27/24 08:05 Hemoglobin A1c 5.7 % A1C (<5.7) Lactic Acid Level 1.7 mmol/L (0.4-2.0) Troponin I High Sensitivity 15 ng/L (</=54) Influenza Type A Antigen Negative (Negative) Influenza Type B Antigen Negative (Negative) SARS-CoV-2 Antigen (Rapid) Negative (NEGATIVE) Other Laboratory Tests 09/28/24 05:34 Brief Hx & Hospital Course: 64-year-old male with a history of hypertension DJD lumbar spine chronic current smoker came in complaining of pain in the left flank found to have ortho 9 mm obstructing right distal ureteral stone with hydronephrosis urology Dr. Pappas advised Flomax IV fluids pain medications. Nephrostomy tube placement was planned but canceled as the patient has good ureteral jet. UTI treated with Rocephin patient was positive for bacteremia with a Klebsiella pneumoniae for which Rocephin will be given for two weeks by home health. Patient also has tele mm left kidney nonobstructing calculus. Patient will be scheduled by Urology Dr. Harrison in four weeks or for ESWL of the right ureteral stone. Patient was offered [facility] facility [facility] for IV antibiotics but he refused and wanted to go back home on home health. Discharged home. He will receive Rocephin 1 g IV daily for two weeks for Klebsiella bacteremia. Consults/Reason for consult Urology Operations or Procedures CT abdomen pelvis without contrast Condition at Discharge: Fair Final Diagnosis/Problems List Sepsis Secondary to acute urinary tract infection: Bacteremia with Klebsiella pneumoniae: Continue Rocephin 1 g IV daily for two weeks by home health Acute urinary tract infection urine cultures growing Klebsiella pneumoniae 9 mm obstructing right distal ureteral stone with hydronephrosis: Consult for Urology Dr. Pappas appreciated., Flomax IV fluids, pain medication, Radiology consult for nephrostomy tube placement was canceled by Urology "patient will eventually need cystoscopy with left ureteral stent placement and ESWL, right URSLL with ureteral stent placement, cystolitholapaxy and removal of PCN when bacteremia has been fully treated" 10 mm left kidney nonobstructing calculus: Urology consult Intractable back pain Hypotension Acute hyponatremia sodium 130: IV fluids Chronic DJD lumbar spine Chronic current smoker counseling Discharge Disposition: Home with Health Services Discharge Instruct/Medications Diet: Cardiac 2g Na,low cholest Activity: Light activity Follow Up/Referral: Follow up with your primary Dr in one week Resume all previous home medications Medications: Rocephin 1 g IV daily for two weeks by home health for bacteremia 36 (Time taken for discharge summary 36 minutes) Discharge Statement: "Patient was advised to return to the ER or call 911 if any headaches, dizziness, shortness of breath, chest pain, abdominal pain, bleeding, fevers, or worsening of medical condition. Patient was counseled about treatment plan, medications, possible side effects, patientverbalized understanding. All questions were answered to the best of my ability. This discharge took greater then 30 minutes in planning, reviewing documentation, counseling the patient, and discussing with other team members." ASSESSMENT ASSESSMENT Hospital Course Improved Assessment Sepsis Secondary to acute urinary tract infection: Bacteremia with Klebsiella pneumoniae: Continue Rocephin 1 g IV daily for two weeks by home health Acute urinary tract infection urine cultures growing Klebsiella pneumoniae 9 mm obstructing right distal ureteral stone with hydronephrosis: Consult for Urology Dr. Pappas appreciated., Flomax IV fluids, pain medication, Radiology consult for nephrostomy tube placement was canceled by Urology "patient will eventually need cystoscopy with left ureteral stent placement and ESWL, right URSLL with ureteral stent placement, cystolitholapaxy and removal of PCN when bacteremia has been fully treated" 10 mm left kidney nonobstructing calculus: Urology consult Intractable back pain Hypotension Acute hyponatremia sodium 130: IV fluids Chronic DJD lumbar spine Chronic current smoker counseling Date of Service: Oct 02, 2024 Billing Provider: SERGE SAVAGE MD Common Visit Codes: 28386-TJV/OBS DISCH DAY >30min SERGE SAVAGE MD Oct 02, 2024 14:48
[2024-10-02 15:14] VITALS: BP 149/84; PULSE 88; RESP 18; TEMP 97.9; O2SAT 97
== END 2024-10-02 15:40 | disposition home health service (06) | DRG 871 ==
LOC: ER 06:29 → OVERFLOW 09:41 → WEST WING 18:46
PROVIDERS: ADMIT Family Medicine; ATTEND Family Medicine
PROC: 05HB33Z Insertion of Infusion Device into Right Basilic Vein, Percutaneous Approach (ICD-10-PCS; principal; 2024-10-02)
PROC: B54MZZA Ultrasonography of Right Upper Extremity Veins, Guidance (ICD-10-PCS; 2024-10-02)
DX: A41.59 Other Gram-negative sepsis (principal); J12.9 Viral pneumonia, unspecified; N17.0 Acute kidney failure with tubular necrosis; E87.1 Hypo-osmolality and hyponatremia; N30.00 Acute cystitis without hematuria; E11.65 Type 2 diabetes mellitus with hyperglycemia; I10 Essential (primary) hypertension; I16.0 Hypertensive urgency; K57.30 Diverticulosis of large intestine without perforation or abscess without bleeding; M47.816 Spondylosis without myelopathy or radiculopathy, lumbar region; F17.210 Nicotine dependence, cigarettes, uncomplicated; N21.0 Calculus in bladder; I95.9 Hypotension, unspecified; Z20.822 Contact with and (suspected) exposure to COVID-19; Z79.899 Other long term (current) drug therapy
CPT/HCPCS: 36415; 71045; 74018; 74176; 76775; 80048; 80053; 81001; 82962; 83036; 83605; 84484; 85025; 85610; 85730; 87040; 87077; 87086; 87088; 87186; 87426; 87804; 93005; 96365; 96367; 96375; 99291; G0378; J1815; J1885

== ENCOUNTER 2024-10-19 07:11 | Emergency (ER) | payer OTHER, MEDICAID ==
[~2024-10-19] VITALS: Ht 182.9 cm; Wt 102.7 kg
[~2024-10-19 07:11] MED LIST: CHOL20002; GABA-1250 PO; LOSA-535 PO; MELO15TA29; NORT10CA PO
--- NOTE | 2024-10-19 07:30 | ED.PDOC ---
History of Present Illness HPI Comments 64 year old male presents to the ED with a chief complaint of PICC line removal onset today (10/19/24). Patient was discharged from this hospital on 09/27/24. He had picc placed on 10/02/24 for antibiotics, finished the course 10/16/24. Patient was advised to follow up with Dr. Pappas 4 weeks after being discharged for follow-up. Was seen by PCP yesterday (10/18/24), refused referral. Patient came to ED for removal of midline. PMHx HTN. Denies abdominal pain, nausea, vomiting, diarrhea, headache, dysuria, hematuria, chest pain, shortness of breath, fever, chills. No other symptoms or modifying factors present at this time. Chief Complaint: requests for PICC line removal Time Seen by MD: 07:18 Reviewed Notes: Medications, Allergies Allergies: Coded Allergies: NO KNOWN ALLERGIES (Unverified , 09/27/24) Home Meds Reported Medications Cholecalciferol (VITAMIN D3) 2,000 Unit Tab, 1 DAILY 09/27/24 Meloxicam (Meloxicam) 15 Mg Tab, 1 DAILY 09/27/24 Nortriptyline HCl (Nortriptyline Hydrochlori) 10 Mg Cap, 1 CAP PO DAILY 09/27/24 Gabapentin (Gabapentin) 300 Mg Cap, 1 CAP PO Q8H 09/27/24 Losartan Potassium (Losartan Potassium) 100 Mg Tab, 0.5 TAB PO BID 09/27/24 Information Source: Patient, Spouse Mode of Arrival: Ambulatory Severity: Moderate Timing: Days Duration: Since onset Prehospital treatment: None Past Medical History PAST MEDICAL HISTORY: HTN, Kidney Stones Surgical History: Denies all surgeries Family History Family History: Reviewed,noncontributory to illness Social History Smoker: Non-Smoker Alcohol: Denies ETOH Use Drugs: Denies Drug Use Lives In: Home Constitutional: denies: chills, diaphoresis, fatigue, fever, malaise, sweats, weakness, others EENTM: denies: blurred vision, double vision, ear bleeding, ear discharge, ear drainage, ear pain, ear ringing, eye pain, eye redness, hearing loss, mouth pain, mouth swelling, nasal discharge, nose bleeding, nose congestion, nose pain, photophobia, tearing, throat pain, throat swelling, voice changes, others Respiratory: denies: cough, hemoptysis, orthopnea, SOB at rest, shortness of breath, SOB with excertion, stridor, wheezing, others Cardiovascular: denies: chest pain, dizzy spells, diaphoresis, Dyspnea on exertion, edema, irregular heart beat, left arm pain, lightheadedness, palpitations, PND, syncope, others Gastrointestinal: denies: abdomen distended, abdominal pain, blood streaked bowels, constipated, diarrhea, dysphagia, difficulty swallowing, hematemesis, melena, nausea, poor appetite, poor fluid intake, rectal bleeding, rectal pain, vomiting, others Genitourinary: denies: burning, dysuria, flank pain, frequency, hematuria, incontinence, penile discharge, penile sore, pain, testicle pain, testicle swelling, urgency, others Neurological: denies: dizziness, fainting, headache, left sided numbness, left sided weakness, numbness, paresthesia, pre-existing deficit, right sided numbness, right sided weakness, seizure, speech problems, tingling, tremors, weakness, others Musculoskeletal: denies: back pain, gout, joint pain, joint swelling, muscle pain, muscle stiffness, neck pain, others Integumetry: denies: bruises, change in color, change in hair/nails, dryness, laceration, lesions, lumps, rash, wounds, others Allergic/Immunocompromised: denies: Difficulty Healing, Frequent Infections, Hives, Itching, others Hematologic/Lymphatic: denies: anemia, blood clots, easy bleeding, easy bruising, swollen glands, others Endocrine: denies: excessive hunger, excessive sweating, excessive thirst, excessive urination, flushing, intolerance to cold, intolerance to heat, unexplained weight gain, unexplained weight loss, others Psychiatric: denies: anxiety, bipolar disorder, depression, hopeless, panic disorder, schizophrenia, sleepless, suicidal, others All Other Systems: Reviewed and Negative Physical Exam General Appearance: No Apparent Distress, Normal, Other (PICC line intact with no complaints) HEENT: Normal ENT Inspection, Pharynx Normal, TMs Normal Neck: Full Range of Motion, Non-Tender, Normal, Normal Inspection Respiratory: Chest Non-Tender, Lungs Clear, No Accessory Muscle Use, No Respiratory Distress, Normal Breath Sounds Cardiovascular: No Edema, No JVD, No Murmur, No Gallop, Normal Peripheral Pulses, Regular Rate/Rhythm Breast Exam: Deferred Gastrointestinal: No Organomegaly, Non Tender, No Pulsatile Mass, Normal Bowel Sounds, Soft Genitalia: Deferred Pelvic: Deferred Rectal: Deferred Extremities: No calf tenderness, Normal capillary refill, Normal inspection, Normal range of motion, Non-tender, No pedal edema Musculoskeletal : Apperance: Normal Neurologic: Alert, hand clerical verifier II-XII nml as Tested, No Motor Deficits, Normal Affect, Normal Mood, No Sensory Deficits Cerebellar Function: Normal Reflexes: Normal Skin: Dry, Normal Color, Warm Lymphatic: No Adenopathy Was a procedure done? Was a procedure done?: No Differential Dx Considerations may include: picc line occlusion. picc line dislodge, picc infection, picc recheck X-Ray, Labs, Meds, VS Vital Signs Date Time Temp Pulse Resp B/P (MAP) Pulse Ox O2 Delivery O2 Flow Rate FiO2 10/19/24 07:20 98.1 102 18 148/83 (104) 98 98.1 Time of 1ST Reevaluation: 07:48 Reevaluation 1ST: Unchanged Patient Education/Counseling: Diagnosis, Treatment, Prognosis, Need For Follow Up Family Education/Counseling: Diagnosis, Treatment, Prognosis, Need For Follow Up Additional Information we are unable to get a hold of Dr Pappas or his office. pt has no symptoms. he would like to go home and follow up with Dr Pappas's office tomorrow and not have the PICC removed, in case he still needs it Departure 1 Departure Time of Disposition: 08:04 Impression: Primary Impression: Status post peripherally inserted central catheter (PICC) central line placement Disposition: 01 HOME / SELF CARE / HOMELESS Condition: Good Discharged With: Self, Spouse Critical Care Note Critical Care Time?: No Stability Stability form required: No I personally scribed for TRACY SÁNCHEZ MD ([email or web address]) on 10/19/24 at 07:30. Electronically submitted by Verna Dixon ([email or web address]). TRACY SÁNCHEZ MD Oct 19, 2024 07:30
[2024-10-19 08:07] VITALS: BP 150/86; PULSE 94; RESP 18; TEMP 98.3; O2SAT 98
--- NOTE | 2024-10-19 09:19 | DVHINCON2 ---
Date of service: Oct 19, 2024 Referring Physician ER Reason for Consultation PIC line removal History of Present Illness Patient seen by IDALIA on 09/29/23 for bilateral ureteral stones, renal stone and bladder stone. He needs to undergo cystolitholapaxy, left ESWL and right URSLL as outpatient. I do not know the reason for PIC line, other than placement by admitting hospitalist for probable urosepsis/UTI or bacteremia. Will plan for outpatient surgery. If UA clear and he has finished his IV antibiotics, then PIC line may be removed. Family History: Diabetes mellitus G8 MOTHER Allergies: Coded Allergies: NO KNOWN ALLERGIES (Unverified , 09/27/24) Home Meds Reported Medications Cholecalciferol (VITAMIN D3) 2,000 Unit Tab, 1 DAILY 09/27/24 Meloxicam (Meloxicam) 15 Mg Tab, 1 DAILY 09/27/24 Nortriptyline HCl (Nortriptyline Hydrochlori) 10 Mg Cap, 1 CAP PO DAILY 09/27/24 Gabapentin (Gabapentin) 300 Mg Cap, 1 CAP PO Q8H 09/27/24 Losartan Potassium (Losartan Potassium) 100 Mg Tab, 0.5 TAB PO BID 09/27/24 Vital Signs Vital Signs Date Time Temp Pulse Resp B/P (MAP) Pulse Ox O2 Delivery O2 Flow Rate FiO2 10/19/24 08:07 94 18 98 Room Air 10/19/24 08:07 98.3 150/86 (107) 98.3 Plan discussed with: JENNIFER Mccarty MD Oct 19, 2024 09:19
== END 2024-10-19 08:41 | disposition home or self-care (01) ==
LOC: ER 07:11
DX: Z45.2 Encounter for adjustment and management of vascular access device (principal); I10 Essential (primary) hypertension; Z79.1 Long term (current) use of non-steroidal anti-inflammatories (NSAID); Z79.899 Other long term (current) drug therapy